=== PATIENT | male | born 1940 | race Caucasian/White ===

== ENCOUNTER → 2020-08-31 | Outpatient (CLI) | payer OTHER ==
[~2020-08-31] MED LIST: ASA81BEC PO; CALCIUM CITRAT200 MG PO; CALCIUM CITRAT250 MG PO; FREESTYLE LIBR1 EAC4 MISCELL; HYDROCHLOROTHIA25 M1 PO; LISINOPRIL20 MG PO; METFORMIN HCL500 M3 PO; MULTI ENZYME PO; NITROSTAT0.4 M1 SUBLING; OZEMPIC INJECTION; PINE BARK EXTRACT PO; TOPROL XL100 MG PO; ZETIA10 MG PO; ZINC CITRATE PO; [UNRECOGNIZED DRUG - OTHER] PO; cholecalciferol PO
--- NOTE | 2020-08-31 14:41 | 2DMMODE ---
[place] [address] 2 D/M-MODE ECHOCARDIOGRAM Name: BELEM BELTRÁN Room: [facility]#: [id number] Admission: 08/31/20 Attend Phys: Itz Monroe, Discharge: Date of : 36 Date of Service: 08/31/20 1441 Report #: [id number] THIS REPORT FOR: cc: Emmanuel De Dios Vincent R. DO Blick,Vicente Peñaloza MD [facility] ~ APPROVED REPORT Study performed: 08/31/2020 12:23:20 EXAM: Comprehensive 2D, Doppler, and color-flow Echocardiogram Patient Location: Out-Patient BSA: 1.95 HR: 74 bpm BP: 120/63 mmHg Other Information Study Quality: Fair Indications Aortic Valve Disease 2D Dimensions IVSd: 11.75 (7-11mm) LVOT Diam: 20.17 (18-24mm) LVDd: 45.27 mm PWd: 10.59 (7-11mm) Ascending Ao: 34.25 (22-36mm) LVDs: 31.93 (25-40mm) Aortic Root: 29.91 mm Volumes Left Atrial Volume (Systole) LA ESV Index: 18.70 mL/m2 Aortic Valve AoV Peak Arias.: 0.93 m/s AO Peak Gr.: 3.45 mmHg LVOT Max P.39 mmHg AO Mean Gr.: 2.08 mmHg LVOT Mean P.41 mmHg LVOT Max V: 0.92 m/s AO V2 VTI: 18.05 cm LVOT Mean V: 0.53 m/s BRUNO (VTI): 3.21 cm2 LVOT V1 VTI: 18.16 cm Mitral Valve E/A Ratio: 0.67 [place] [address] 2 D/M-MODE ECHOCARDIOGRAM Name: BELEM BELTRÁN Room: [facility]#: [id number] Admission: 08/31/20 Attend Phys: Itz Monroe, Discharge: Date of : 36 Date of Service: 08/31/20 1441 Report #: [id number] MV Decel. Time: 389.53 ms MV E Max Arias.: 0.40 m/s MV PHT: 112.96 ms MVA (PHT): 1.95 cm2 TDI E/Lateral E': 5.71 E/Medial E': 6.67 Medial E' Arias.: 0.06 m/s Lateral E' Arias.: 0.07 m/s Pulmonary Valve PV Peak Arias.: 0.73 m/s PV Peak Gr.: 2.15 mmHg Left Ventricle The left ventricle is normal size. There is normal LV segmental wall motion. Mild concentric left ventricular hypertrophy. Left ventricular systolic function is normal. The left ventricular ejection fraction is within the normal range. LVEF is 55-60%. Right Ventricle The right ventricle is normal size. The right ventricular systolic function is normal. Atria The left atrium size is normal. The right atrium size is normal. Aortic Valve The aortic valve is normal in structure. Mild aortic regurgitation. There is no aortic valvular stenosis. Mitral Valve The mitral valve is normal in structure. Mild mitral regurgitation. No evidence of mitral valve stenosis. Tricuspid Valve The tricuspid valve is normal in structure. There is trace tricuspid valve regurgitation noted. Pulmonic Valve The pulmonary valve is normal in structure. Mild pulmonic regurgitation. Great Vessels The aortic root is normal in size. IVC is normal in size and collapses >50% [place] [address] 2 D/M-MODE ECHOCARDIOGRAM Name: BELEM BELTRÁN Room: [facility]#: [id number] Admission: 08/31/20 Attend Phys: Itz Monroe, Discharge: Date of : 36 Date of Service: 08/31/20 1441 Report #: [id number] Pericardium There is no pericardial effusion. <Conclusion> Mild concentric left ventricular hypertrophy. LVEF is 55-60%. Mild aortic regurgitation. Mild mitral regurgitation. <ELECTRONICALLY SIGNED> By: Vicente Guzman MD, FAC 08/31/20 1441 [id number] 144 Vicente Guzman MD, [facility] /INF
--- NOTE | 2020-08-31 16:59 | CARDNUC ---
[place] [address] CARDIAC NUCLEAR IMAGING REPORT Name: BELEM BELTRÁN Room: [facility]#: [id number] Admission: 08/31/20 Attend Phys: Itz Monroe, Discharge: Date of : 36 Date of Service: 08/31/20 1658 Report #: [id number] THIS REPORT FOR: cc: Emmanuel De Dios Vincent R. DO Liston,Itz Hannah MD [facility] ~ APPROVED REPORT Imaging Protocol: Stress Tc-99m/Rest Tc-99m 1 day Study performed: 08/31/2020 15:19:24 Indication: Chest pain, AMBROSE, murmur. Patient Location: Out-Patient Stress Tech: Keisha Baird Stress Nurse: Nanci Ivey RN Ht: 5 ft 9 in Wt: 165 lbs BSA: 1.90 m2 BMI: 24.36 Medical History Medical History: Angina, CAD s/p CABG, CAD s/p stent, Carotid artery disease, Diabetes, HTN, Hyperlipidemia, RBBB, SOB, Valvular heart disease, diastolic murmur. Medications: ASA 81 mg, Zetia, HCTZ, Lisinopril, Metoprolol, NTG, Metformin. Allergies: No known drug allergies Cardiac Risk Factors: Age, DM, FHX of CAD, HTN, Hyperlipidemia, SOB, nonrheumatic aortic insufficiency, pulmonary regurgitation, diastolic murmur. Previous Cardiac Procedures: PCI, CABG. Pretest Chest Pain Characteristics: No chest pain Exercise History: Indeterminate Physical Disabilities: Murmur, valvular heart disease. Meds Held (24 hrs): Metoprolol, NTG. Resting Data Rest SPECT myocardial perfusion imaging was performed in supine position 30 minutes following the intravenous injection of 10.0 mCi of Tc-99m Sestamibi. Time of rest injection: 14:05 The images were gated to evaluate regional wall motion and calculate left ventricular ejection fraction. Administration Route: IV Administration Site: [place] [address] CARDIAC NUCLEAR IMAGING REPORT Name: BELEM BELTRÁN Room: [facility]#: [id number] Admission: 08/31/20 Attend Phys: Itz Monroe, Discharge: Date of : 36 Date of Service: 08/31/20 1658 Report #: [id number] Pharmacologic Stress Pharmacologic stress test was performed by injecting Regadenoson 0.4 mg IV push over 10-15 seconds immediately followed by the intravenous injection of 30.6 mCi of Tc-99m Sestamibi. Time of stress injection: 15:35 Administration Route: IV Administration Site: Right Heart Rate at time of stress injection: 84 bpm. Gated Stress SPECT was performed 45 minutes after stress injection. The images were gated to evaluate regional wall motion and calculate left ventricular ejection fraction. Stress Test Details Stress Test: Pharmacologic stress testing performed using 0.4 mg of regadenoson per 5 mL given IV over 10 seconds. Reason for pharmacologic stress test: Murmur, valvular heart disease.. HR Max Heart Rate (APMHR): 139 bpm Resting HR: 74 bpm Target HR (85% APMHR): 118 bpm Max HR Achieved: 95 bpm % of APMHR: 68 Recovery HR: 89 bpm BP Resting BP: 199/97 mmHg Max BP: 160/75 mmHg Recovery BP: 173/77 mmHg ECG Resting ECG: Sinus Rhythm, RBBB Stress ECG: Sinus Rhythm, RBBB ST Change: None Arrhythmia: None Recovery ECG: Sinus Rhythm, RBBB Recovery ST Change: None Recovery Arrhythmia: None, None Clinical Reason for Termination: Completed protocol Stress Symptoms: mild brief chest heaviness, dyspnea. Exercise duration: 00 min 00 sec Exercise capacity: 1.00 METs Patient tolerated Lexiscan infusion without [place] [address] CARDIAC NUCLEAR IMAGING REPORT Name: BELEM BELTRÁN Room: [facility]#: [id number] Admission: 08/31/20 Attend Phys: Itz Monroe, Discharge: Date of : 36 Date of Service: 08/31/20 1658 Report #: [id number] Nurse Comments AN 79 YEAR OLD MALE PRESENTED FOR A SITTING LEXISCAN. TEST WELL TOLERATED. RECOVERY UNREMARKABLE. PATIENT WAS STABLE AND STATED HE FELT GOOD WHEN ESCORTED TO NUCLEAR MEDICINE FOR IMAGING. Stress ECG Conclusion The baseline twelve-lead EKG shows sinus rhythm with right bundle branch block without significant ST segment abnormality. EKGs obtained during and post Lexiscan infusion show sinus rhythm with no significant ST segment changes when compared to baseline. There were no stress-induced arrhythmias. Study Quality Study: Good Artifact: No artifact Study Data At rest, the left ventricular ejection fraction was 74%.. Post stress, the left ventricular ejection was 62%.. TID = 0.86. Perfusion Perfusion images show a small to moderate sized severe intensity fixed defect involving the basal portion the inferior wall. No other significant fixed or reversible defects were identified. Wall Motion There is akinesis of the basal portion the inferior wall. There is dyssynergy of the septum consistent with underlying bundle branch block. Global LV systolic function is preserved. 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 There was no evidence of stress-induced ischemia. Global LV systolic function is preserved with wall motion abnormalities as outlined above. This is not a high risk study. <Conclusion> The baseline twelve-lead EKG shows sinus rhythm with right bundle branch block without significant ST [place] [address] CARDIAC NUCLEAR IMAGING REPORT Name: BELEM BELTRÁN Room: [facility]#: [id number] Admission: 08/31/20 Attend Phys: Itz Monroe, Discharge: Date of : 36 Date of Service: 08/31/20 1658 Report #: [id number] obtained during and post Lexiscan infusion show sinus rhythm with no significant ST segment changes when compared to baseline. There were no stress-induced arrhythmias. <ELECTRONICALLY SIGNED> By: Itz Monroe MD, FACC 08/31/201657 [id number] 57 Itz Monroe MD, FACC /INF
== END ==
LOC: M.ULTRA 08-08 09:33 → M.CRD 12:18 → M.NUC 14:00
PROVIDERS: ATTEND Internal Medicine Cardiovascular Disease
DX: I08.8 Other rheumatic multiple valve diseases (principal); I65.23 Occlusion and stenosis of bilateral carotid arteries; R09.89 Other specified symptoms and signs involving the circulatory and respiratory systems; I25.10 Atherosclerotic heart disease of native coronary artery without angina pectoris